=== PATIENT | female | born 1970 | race Caucasian/White ===

== ENCOUNTER 2018-11-15 10:58 | Emergency (ER) | payer OTHER ==
[2018-11-15 11:09] VITALS: BP 111/71; PULSE 70; TEMP 98.2; BMI 29.3
--- NOTE | 2018-11-15 11:43 | PDOC ---
History of Present Illness - General Chief Complaint: Injury Stated Complaint: RT. FOOT PAIN Time Seen by Provider: 11/15/18 11:16 History Source: Patient Exam Limitations: Clinical Condition - History of Present Illness Initial Comments: 11/15/18 11:37 Patient with no significant past medical history sent with complaint of right ankle and foot pain and swelling status post twisting foot and ankle over stone on the construction site yesterday. Patient reported increased pain to right ankle and foot with ambulation. Denies fall, hitting head or loss of consciousness. Denies any other symptoms. Patient reported improved swelling due to elevation of right lower extremity since incident Occurred: reports: yesterday Past History - Past Medical History Allergies/Adverse Reactions: Allergies Allergy/AdvReac Type Severity Reaction Status Date / Time Penicillins Allergy Verified 11/02/17 23:30 Home Medications: Ambulatory Orders Ibuprofen 800 mg PO Q8H PRN #20 tablet 11/15/18 Asthma: Yes COPD: No Diabetes: Yes - Surgical History Cholecystectomy: Yes GI Surgery: Yes (GASTRIC BYPASS) - Immunization History Immunization Up to Date: No - Suicide/Smoking/Psychosocial Hx Smoking History: Never smoked Have you smoked in the past 12 months: No Information on smoking cessation initiated: No Hx Alcohol Use: No Drug/Substance Use Hx: No Substance Use Type: None Review of Systems - Review of Systems Able to Perform ROS?: Yes Is the patient limited Slovak proficient: No Constitutional: No: Malaise, Weakness HEENTM: No: Symptoms Reported Respiratory: No: Symptoms reported Cardiac (ROS): No: Symptoms Reported Musculoskeletal: Yes: Symptoms Reported, See HPI, Joint Pain (right ankle ), Joint Swelling (right ankle), Muscle Pain (top of right foot). No: Muscle Weakness Neurological: No: Numbness, Paresthesia, Tingling, Weakness All Other Systems: Reviewed and Negative *Physical Exam - Vital Signs Last Vital Signs Temp Pulse Resp BP Pulse Ox 98.2 F 70 16 111/71 99 11/15/18 11:07 11/15/18 11:07 11/15/18 11:07 11/15/18 11:07 11/15/18 11:07 - Physical Exam Comments: 11/15/18 11:43 GENERAL: Well developed, well nourished. Awake and alert in mild acute distress. CARDIOVASCULAR: Regular rate and rhythm. No murmurs, rubs, or gallops. PULMONARY: No evidence of respiratory distress. MUSCULOSKELETAL : Moderate tenderness over lateral malleolus and dorsum of right foot. Mild tenderness over medial malleolus of right ankle. Mild swelling to lateral malleolus of right ankle and dorsum of right foot. Negative anterior- posterior drawer tests of right ankle. No bony deformities EXTREMITIES: No cyanosis. No clubbing. No calf tenderness. SKIN: Warm and dry. Normal capillary refill. No ecchymosis NEUROLOGICAL: Alert, awake, appropriate. No motor deficits in the lower extremities. Gait is normal without ataxia. PSYCHIATRIC: Cooperative. Good eye contact. Appropriate mood and affect. General Appearance: Yes: Nourished, Appropriately Dressed, Mild Distress ED Treatment Course - RADIOLOGY Radiology Studies Ordered: Category Date Time Status ANKLE & FOOT-RIGHT* [RAD] Stat Radiology 11/15/18 11:28 Ordered LEG TIB/FIB-RIGHT [RAD] Stat Radiology 11/15/18 11:28 Ordered Medical Decision Making - Medical Decision Making 11/15/18 11:40 Patient with no significant past medical history sent with complaint of right ankle and foot pain and swelling status post twisting foot and ankle over stone on the construction site yesterday. Patient reported increased pain to right ankle and foot with ambulation. Denies fall, hitting head or loss of consciousness. Denies any other symptoms. Patient reported improved swelling due to elevation of right lower extremity since incident Exam significant for mild swelling over lateral malleolus and dorsum of right foot. Moderate tenderness over dorsal of right foot and lateral malleolus of right ankle with mild tenderness over medial malleolus of right ankle. Negative anterior-posterior drawer tests of right ankle. Symptoms likely ankle and foot sprain versus less likely fracture. X-ray of right ankle, foot and lower leg ordered to rule out acute fracture or pathology. Treat based on imaging results 11/15/18 12:19 X-ray of right ankle, foot and leg shows no acute fracture dislocation symptoms likely ankle sprain. Ibuprofen 800 mg by mouth ordered for pain. Right ankle wrapped with Darek bandage. Patient is stable for discharge with advised to do warm compresses to foot and ankle as needed for swelling with Motrin as needed for pain with orthopedist follow-up as needed *DC/Admit/Observation/Transfer Diagnosis at time of Disposition: Sprain of right ankle Qualifiers: Encounter type: initial encounter Involved ligament of ankle: unspecified ligament Qualified Code(s): S93.401A - Sprain of unspecified ligament of right ankle, initial encounter - Discharge Dispostion Disposition: HOME Condition at time of disposition: Stable Decision to Admit order: No - Prescriptions Prescriptions: Ibuprofen 800 mg PO Q8H PRN #20 tablet PRN Reason: pain - Referrals Referrals: Mirna Carranza [Primary Care Provider] - Bethel Shields DO [Staff Physician] - - Patient Instructions Printed Discharge Instructions: Ankle Sprain, DI for Ankle Sprain Additional Instructions: Keep right leg elevated and apply warm compresses 2-3 times a day as needed for pain and swelling. Take prescribed medication as needed for pain. Follow-up referred orthopedics if no improvement in 4 days - Post Discharge Activity Forms/Work/School Notes: Back to Work
[2018-11-15] MEDS ORDERED: IBUPROFEN 400 MG TABLET (FP) PO ONE ×2 (12:10→12:11)
== END 2018-11-15 12:23 | disposition home or self-care (01) ==
LOC: JERFT 10:58
DX: S93.401A Sprain of unspecified ligament of right ankle, initial encounter (principal); W18.09XA Striking against other object with subsequent fall, initial encounter; Y93.89 Activity, other specified; Y92.89 Other specified places as the place of occurrence of the external cause; J45.909 Unspecified asthma, uncomplicated; Z98.84 Bariatric surgery status
CPT/HCPCS: 73590-TC-RT-FY; 73610-TC-RT-FY; 73630-TC-RT-FY; 99282-25

== ENCOUNTER 2019-03-05 19:52 | Emergency (ER) | payer OTHER ==
[2019-03-05] MEDS ORDERED: KETOROLAC TROMETHAMINE 30 MG/1 ML VIAL IM ONE (20:16)
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
[2019-03-05 20:19] VITALS: BP 177/66; PULSE 77; TEMP 98.7; BMI 31.9
[2019-03-05] MEDS ORDERED: KETOROLAC TROMETHAMINE 30 MG/1 ML VIAL ONE (20:38)
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
== END 2019-03-05 20:50 | disposition home or self-care (01) ==
LOC: JERFT 19:52
PROC: 3E0233Z Introduction of Anti-inflammatory into Muscle, Percutaneous Approach (ICD-10-PCS; principal; 2019-03-05)
DX: S16.1XXA Strain of muscle, fascia and tendon at neck level, initial encounter (principal); V43.52XA Car driver injured in collision with other type car in traffic accident, initial encounter; Y92.414 Local residential or business street as the place of occurrence of the external cause; Y93.89 Activity, other specified; Y99.8 Other external cause status; J45.909 Unspecified asthma, uncomplicated; E11.9 Type 2 diabetes mellitus without complications; Z88.0 Allergy status to penicillin
CPT/HCPCS: 99282-25